=== PATIENT | female | born 1960 | race Caucasian/White ===

== ENCOUNTER 2020-03-20 07:06 | Day surgery (SDC) | payer OTHER ==
[~2020-03-20] VITALS: Ht 160 cm; Wt 81.6 kg
[2020-03-20 07:40] VITALS: BP 131/76
[2020-03-20 12:31] VITALS: BP 110/70
== END 2020-03-20 12:05 | disposition home or self-care (01) ==
LOC: GI 07:06 → OR 08:00 → GI 12:05 → OR 03-22 08:00
PROVIDERS: ATTEND Internal Medicine Gastroenterology
DX: R10.9 Unspecified abdominal pain (principal); K64.8 Other hemorrhoids; K22.10 Ulcer of esophagus without bleeding; K21.0 Gastro-esophageal reflux disease with esophagitis; K62.89 Other specified diseases of anus and rectum; Z90.710 Acquired absence of both cervix and uterus
CPT/HCPCS: 43235; 45378; J1200; J1610; J2250; J2310; J3010; J3490

== ENCOUNTER → 2020-06-26 | Outpatient (CLI) | payer OTHER | END | disposition home or self-care (01) | LOC: MI 07:35 | PROVIDERS: ATTEND Podiatrist Foot & Ankle Surgery | DX: M79.89 Other specified soft tissue disorders (principal) ==

== ENCOUNTER → 2020-07-06 | Outpatient (CLI) | payer OTHER | END | disposition home or self-care (01) | LOC: MI 08:15 | PROC: BQ3LZZZ Magnetic Resonance Imaging (MRI) of Right Foot (ICD-10-PCS; principal; 2020-07-06) | DX: M79.89 Other specified soft tissue disorders (principal) ==